=== PATIENT | male | born 1960 | race Caucasian/White ===

== ENCOUNTER → 2023-07-21 13:30 | Outpatient (CLI) | payer BC, SELFPAY ==
--- NOTE | 2023-07-21 14:18 | DI.RAD_ITS ---
Exam(s) XR RIBS RT W PA LAT CHEST EXAM: XR RIBS RT W PA LAT CHEST CLINICAL HISTORY: Rt rib pain s/p fall onto ribs 2 days ago, pleurodynia, R07.81 TECHNIQUE: 2D digital imaging was performed.Six images were obtained. COMPARISON: No exams were available for comparison FINDINGS: MEDIASTINUM: Normal. HEART: Normal. PULMONARY VASCULATURE: Normal. LUNGS: Clear. PLEURAL SPACE: There is a small right apical pneumothorax. The surface of the right lung is 2 cm fro m the apex of the hemithorax. There is a small right pleural effusion. No left pneumothorax or left pleural effusion. BONE:Normal. RIGHT RIBS: There is a minimally displaced fracture of the posterior aspect of the right 8th rib. Th ere also is a nondisplaced fracture involving the posterolateral aspect of the right 5th and 6th ribs (image 5). OTHER FINDINGS:Normal. IMPRESSION: 1. Minimal to nondisplaced fractures involving the posterior aspect of the right 8th rib in the poste rolateral aspects of the right 5th and 6th ribs. 2. Small right apical pneumothorax. There is a small right pleural effusion. DATA REPOSITORY: RADIATION DOSE DELIVERED:
== END ==
PROVIDERS: Visit Provider Physician Assistant
DX: S22.41XA Multiple fractures of ribs, right side, initial encounter for closed fracture (principal); X58.XXXA Exposure to other specified factors, initial encounter
CPT/HCPCS: 71046; 71100

== ENCOUNTER 2023-07-21 16:34 | Emergency (ER) | payer BC, SELFPAY ==
[2023-07-21 16:37] VITALS: BP 147/78; PULSE 85; RESP 18; TEMP 36.9; O2SAT 100
--- NOTE | 2023-07-21 16:48 | W.ED.GENAD ---
Discharge Plan Disposition Patient Disposition: Home Condition: Stable Discharge Details Clinical Impression: Multiple fractures of ribs of right side, Pleural effusion on right, Pneumothorax on right Primary Care Provider: Unknown,Unknown ED Provider: Mark Manrique Home Meds and New Rx's Prescriptions: Continued losartan-hydrochlorothiazide 100-25 mg tablet 1 tab PO DAILY atorvastatin 40 mg tablet 40 mg PO DAILY Patient Comments: TAKE 1 TABLET BY MOUTH DAILY lidocaine 5 % adhesive patch,medicated 1 patch topical DAILY methocarbamol 750 mg tablet 750 mg PO PRN Discharge Instructions Instructions: Oxycodone, Rapid Release (By mouth), Traumatic Pneumothorax (ED), How to Use an Incentive Spirometer (ED), Rib Fracture (ED) Additional Instructions: You were seen in the emergency department for your fall on Friday, you suffered 3 right-sided rib fractures and you have a small pneumothorax at the top of your right lung. He also have some developing fluid in the right lung, there is a risk of developing pneumonia with this injury. We have provided you with an incentive spirometer to use many times per day to help reduce the risk of pneumonia. Please use therapeutic dosing of Tylenol (acetamenophen) & Advil (ibuprofen) in an alternating fashion as follows: Take 1000mg of Tylenol every 6 hours without missing doses- that is 4 times per day. [place] in between the Tylenol dosings, take 400-600mg of Advil also on a 6 hour schedule, that is also 4 times per day. The daily maximum dosing of Tylenol is 4000mg, and the daily maximum dosing of Advil is 2400mg. This is safe to do for weeks. Please note that some common cold medications & prescription pain medications may contain acetamenophen and you need to read OTC drug labels and factor that in to maximum daily dosings. Use a topical lidocaine patch to the area of pain for 12 hours each day, fill your muscle relaxer prescription. Use the oxycodone for breakthrough pain as needed. Please return to the ED for any severe increase in respiratory distress, developing cough especially with fever, follow-up with Dr. Harp's office for definitive management if you feel completely better you can cancel that appointment. Referrals: [facility] [Provider Group] Discharge Data Discharge Date/Time-TO BE ENTERED AT DEPARTURE: 07/21/23 17:55 HPI General Date/Time Provider Initiated Documentation: 07/21/23 16:47. HPI Narrative: 63 year-old male presents to ED today by POV/ambulating with a chief complaint of fall down basement stairs on Friday- seen at [facility] with XR showing R 5th, 6th, and 8th ribs with pleural effusion and small R apical pneumothorax. Quality described as pain to R ribs, no radiation to fever, developing cough, abdominal pain, hematuria, confusion, nausea/vomiting, LOC, repetitive questioning. Severity is described as moderate. Palliating factors include Tylenol and ibuprofen with some relief. Provoking factors include getting up from sleeping. Patient not anticoagulated. Related Data Home Medications Medication Instructions Recorded Confirmed atorvastatin 40 mg tablet 40 mg PO DAILY 07/21/23 07/21/23 lidocaine 5 % topical patch 1 patch topical DAILY 07/21/23 07/21/23 losartan 100 1 tab PO DAILY 07/21/23 07/21/23 mg-hydrochlorothiazide 25 mg tablet methocarbamol 750 mg tablet 750 mg PO PRN 07/21/23 07/21/23 Allergies Allergy/AdvReac Type Severity Reaction Status Date / Time No Known Allergies Allergy Unverified 07/21/23 16:42 General Stated Complaint: Chest/Rib DARIUS: 3 Review of Systems All systems reviewed & are unremarkable except as noted in HPI and below Exam Narrative Exam Narrative: GENERAL APPEARANCE: Well-nourished, non-toxic, awake and alert, atraumatic, no acute distress. SKIN: Warm, pink, dry, intact, without rashes/lesions/ulcerations. HEAD: Normocephalic, atraumatic, normal hair distribution for gender/age. EYES: Pupils PERRLA, EOMs intact without nystagmus, normal conjunctiva, no exudates on lids/lashes. ENT: Nares patent, no circumoral cyanosis, no facial swelling NECK: Supple, trachea midline, painless cervical ROM. LUNGS/CHEST: Lungs CTA bilaterally- no rhonchi/rales/wheezes, no diminishment or absent lung sounds R apice, non-labored respirations, normal A/P diameter, symmetrical expansion, no chest wall deformity, TTP R posterior ribs, no flail segment or paradoxical motion HEART (CV/PV): Regular rate and rhythm without murmur, no peripheral edema, no JVD. ABDOMEN: Soft, non-distended, no guarding, no tenderness. MSK: Normal ROM, no swelling/deformity to bilateral UEs or LEs, moving all extremities without weakness, no cyanosis, spine midline without tenderness, normal curvature. NEURO: Mental Status AAOx4 - alert to person, place, time, events No facial droop, no forehead involvement. Motor: No focal weakness - strength 5/5 in bilateral UEs and LEs, proximal and distal, symmetric. Sensory: sensation intact to light touch globally. Gait normal: patient ambulated without ataxia into ED room. PSYCH: euthymic, cooperative, pleasant, appropriate speech Course Vital Signs Vital signs: Vital Signs Temperature 36.9 C 07/21/23 16:37 Pulse 85 07/21/23 16:37 Respiratory Rate 18 07/21/23 16:37 Blood Pressure 147/78 H 07/21/23 16:37 Pulse Oximetry 100 07/21/23 16:37 Temperature 36.9 C 07/21/23 16:37 Temperature Source Skin 07/21/23 16:37 Pulse 85 07/21/23 16:37 Respiratory Rate 18 07/21/23 16:37 Blood Pressure 147/78 H 07/21/23 16:37 Blood Pressure Position Sitting 07/21/23 16:37 Pulse Oximetry 100 07/21/23 16:37 Oxygen Delivery Method Room Air 07/21/23 16:37 Oxygen Flow Rate 0 07/21/23 16:37 Pain Level 1 07/21/23 16:37 Comment worse with movement 10/1707/21/23 16:37 Medical Decision Making This dictation utilizes [id number] dictation software and may contain unedited grammatical errors. 63 y/o M presents to ED today with a chief complaint of fall on Friday off a small staircase to a concrete floor with R rib pain- presented to [facility], performed XR there and shows 3 R rib fractures, small apical pneumothorax, and R pleural effusion. Patient has not developed cough or fever, is able to push through his ADLs with only Tylenol and ibuprofen and appears overall in no distress. Patients' medical history: Noncontributory. Family and social history: Recovering opiate addict. Pertinent exam findings / vital signs include tenderness to the right posterior ribs without flail segment or paradoxical motion, no auscultated bowel diminished lung sounds the right apex, benign cardiopulmonary status, afebrile, no cough, benign abdomen. Differential / pathologies of concern include multiple rib fractures, pneumothorax, developing pneumonia. Diagnostic studies of: -Reviewed image at [facility]. Interventions of: -Consulted with Dr. Harp of general surgery, reasonable for outpatient follow-up, patient already has a prescription for muscle relaxer and I am providing him an oxycodone to go pack. ED Course/Assessment/Plan: 63-year-old male suffered a fall landing on his back on a flat concrete floor fracturing 3 ribs and causing a small apical pneumothorax as well as right pleural effusion developing since the injury on Friday. He has not developed fever or cough. Consulted with general surgery due to his overall well appearance it is reasonable that he follows up as an outpatient. I did provide him with an incentive spirometer to reduce risk of pneumonia, counseled on therapeutic dosing of Tylenol and ibuprofen, recommend he continue lidocaine patches and provided to cut back of oxycodone. Strict return criteria for developing respiratory distress, fever cough. Findings not consistent with hypoxia, respiratory distress, flail segment or paradoxical motion, pneumonia. Disposition of Multiple fractures of ribs of right side, pneumothorax on right, pleural effusion on right Patient verbalized understanding of the plan and return to ED criteria and engaged in shared decision making. Medical Records Medical records reviewed: Yes I reviewed the patient's medical records. Imaging Data Radiologic Study: Attestation: I personally reviewed and interpreted this imaging study as follows: Imaging: X-Ray Radiologist's impression: EXAM: XR RIBS RT W PA LAT CHEST CLINICAL HISTORY: Rt rib pain s/p fall onto ribs 2 days ago, pleurodynia, R07.81 TECHNIQUE: 2D digital imaging was performed.Six images were obtained. COMPARISON: No exams were available for comparison FINDINGS: MEDIASTINUM: Normal. HEART: Normal. PULMONARY VASCULATURE: Normal. LUNGS: Clear. PLEURAL SPACE: There is a small right apical pneumothorax. The surface of the right lung is 2 cm from the apex of the hemithorax. There is a small right pleural effusion. No left pneumothorax or left pleural effusion. BONE:Normal. RIGHT RIBS: There is a minimally displaced fracture of the posterior aspect of the right 8th rib. There also is a nondisplaced fracture involving the posterolateral aspect of the right 5th and 6th ribs (image 5). OTHER FINDINGS:Normal. IMPRESSION: 1. Minimal to nondisplaced fractures involving the posterior aspect of the right 8th rib in the posterolateral aspects of the right 5th and 6th ribs. 2. Small right apical pneumothorax. There is a small right pleural effusion. Quality:SDOH Health Related Social Needs: No Data to Display PFSH All Active Problems (Updated 07/21/23 @ 17:43 by ARCADIO Gutierrez) Pneumothorax on right (Acute) Pleural effusion on right (Acute) Multiple fractures of ribs of right side (Acute) Social History Smoking/Tobacco Use Status: Former Tobacco Use Quit Date: 07/08/12 Smoking risk assessment performed?: Yes Alcohol Intake: former Substance use type: does not use Housing: house Do you feel safe at home: Yes Do you feel safe in your relationship?: Yes
--- NOTE | 2023-07-21 17:35 | SCONE_ITS ---
Date of service: 07/21/23 Time of Service: 17:35 Assessment and Plan Assessment and plan (1) Multiple fractures of ribs of right side: Status: Acute Assessment and plan: I was able to review the chest x-ray, and I certainly agree that there is a fracture of the eighth rib. Fractures of ribs numbers 5 and 6 are little bit difficult to see. I suspect there may be a fracture of the 10th rib as well. I agree that there is an apical pneumothorax, and perhaps a trace effusion. Based on his current exam, and the nature of the fractures on the chest x-ray, he should heal up just fine with some time. We talked about the importance of adequate pain control to allow for appropriate pulmonary toileting. I recommend against treatment of the pneumothorax as it is entirely asymptomatic, number now over 48 hours from time of injury. I would continue with a multimodal regimen treatment of this pain including the use of methocarbamol and topical treatments with lidocaine patches. I will have my office reach out to him to schedule follow-up appointment in the next few weeks. If there are any changes in the meantime, and we can certainly accommodate him accordingly. History of Present Illness History of Present Illness Chief Complaint: Right-sided chest pain with rib fractures Narrative: Eduardo is 63 years old. He was doing some construction at home on some steps, and fell off the staircase approximately 5 feet landing on his right side. He had pain in the right flank and back. He did not seek attention immediately. He had increasing pain on Friday, mostly when he was sitting still. When he gets up and moves around he felt better. He called his primary care physician on Friday, but was not able to make an appointment she was referred over to urgent care. He underwent x-ray of the chest there that demonstrated right- sided rib fractures. Fractures were identified on ribs #5 6 and 8. There was also an apical pneumothorax and some pleural effusion. He was referred to the department. In the ER, he seems fairly comfortable. He is sitting upright in the chair. He denies any shortness of breath. He describes the pain as sharp and radiating from the right back to the right flank. Again, it tends to be worse after he is holding still for prolonged period of time and then gets up to move around. He also has a little bit of difficulty initiating and maintaining sleep because of the pain. He denies any crepitus. He denies any cough or any other forms of dyspnea. He says he has been feeling a little bit better since the application of a lidocaine patch. He has no past surgical history. He has no allergies. Past medical history is most significant for some hypertension and hypercholesterol. He denies pulmonary medical history PFSH All Active Problems (Updated 07/21/23 @ 17:43 by ARCADIO Gutierrez) Pneumothorax on right (Acute) Pleural effusion on right (Acute) Multiple fractures of ribs of right side (Acute) Social History Smoking/Tobacco Use Status: Former Tobacco Use Quit Date: 07/08/12 Smoking risk assessment performed?: Yes Alcohol Intake: former Substance use type: does not use Housing: house Do you feel safe at home: Yes Do you feel safe in your relationship?: Yes Exam Const General: cooperative, healthy appearing, comfortable and no acute distress Nutritional Appearance: average body habitus HENNV Head: normal to inspection, normocephalic and atraumatic Chest Chest: normal inspection of the chest, no crepitus and localized rib tenderness with anteroposterior compression Results Last Vital Signs Temp 98.5 F 07/21/23 16:37 Pulse 85 07/21/23 16:37 Resp 18 07/21/23 16:37 BP 147/78 H 07/21/23 16:37 Pulse Ox 100 07/21/23 16:37 Imaging Chest x-ray: report reviewed and image reviewed
[2023-07-21 17:52] VITALS: BP 130/82; PULSE 80; RESP 12; O2SAT 98
== END 2023-07-21 17:55 | disposition home or self-care (01) ==
LOC: ER 17:57
PROVIDERS: Emergency Provider Physician Assistant
DX: S22.41XA Multiple fractures of ribs, right side, initial encounter for closed fracture (principal); J90 Pleural effusion, not elsewhere classified; J93.83 Other pneumothorax; Z87.891 Personal history of nicotine dependence; W10.8XXA Fall (on) (from) other stairs and steps, initial encounter; Y93.01 Activity, walking, marching and hiking; Y92.018 Other place in single-family (private) house as the place of occurrence of the external cause
CPT/HCPCS: 99283

== ENCOUNTER 2024-05-07 08:16 | Outpatient (REF) | payer BC, SELFPAY ==
[2024-05-07 15:27] LABS: Anion Gap 2.7 mmol/L (3-11); BUN 20 mg/dL (7-18); CO2 33.3 mmol/L (21.0-32.0); Calcium 9.3 mg/dL (8.5-10.1); Calculated LDL 57 mg/dL (<100); Chloride 105 mmol/L (98-107); Cholesterol 122 mg/dL (<200); Estimated GFR 84.05 (mL/min/1.73m2); Glucose 100 mg/dL (74-106); HDL Cholesterol 40 mg/dL (>or=40); Potassium 3.5 mmol/L (3.5-5.1); Sodium 141 mmol/L (136-145); Triglyceride 127 mg/dL (<150)
== END 2024-05-07 08:17 | disposition home or self-care (01) ==
LOC: NCHCN 08:16
PROVIDERS: PCP Internal Medicine; Visit Provider Internal Medicine
DX: I10 Essential (primary) hypertension (principal); E78.2 Mixed hyperlipidemia
CPT/HCPCS: 80048; 80061

== ENCOUNTER 2024-08-09 06:53 | Day surgery (SDC) | payer BC, SELFPAY ==
--- NOTE | 2024-08-07 15:57 | W.PM.DSUDISC ---
Date of service: 08/09/24 Discharge Plan Disposition Patient Disposition: Home Condition: Good Discharge Details Reason For Visit: screening colonoscopy Attending Provider: Narendra Harp Primary Care Provider: Heavenly Hunt Home Meds and New Rx's Prescriptions: Continued losartan-hydrochlorothiazide 100-25 mg tablet 1 tab PO DAILY atorvastatin 40 mg tablet 40 mg PO DAILY Patient Comments: TAKE 1 TABLET BY MOUTH DAILY Discontinued polyethylene glycol 3350 17 gram/dose powder 238 g PO ONCE Qty: 238 0RF Rx Instructions: take per colonoscopy instructions bisacodyl [Dulcolax (bisacodyl)] 5 mg tablet,delayed release (DR/EC) 5 mg PO ONCE Qty: 4 0RF Rx Instructions: take per colonoscopy instructions Discharge Instructions Instructions: Colon polyps, Diverticulosis Additional Instructions: Eduardo, was good to see you today, and I hope you feel well after the procedure. Things went very smoothly. Your prep was excellent, we could see everything fine. I did find, and removed 3 polyps today. These were all small in size, and none of them have any particularly worrisome features to the naked eye. These will all be sent to the pathologist for their review. Those results take about a week or 2 to get back, but once my office has had information we will be in touch with recommendations for future colonoscopies. Incidentally, he also have some diverticulosis. These are little weak spots in the muscular layer of the colon wall. They cause the inside lining, or mucosa, to pocket her pouch outwards a little bit. The pockets are called diverticula, the condition of having them is known as diverticulosis, and if patients experience significant symptoms from them, we refer to that as diverticulitis. I will attach some basic information here about colon rectal polyps as well as diverticulosis. If you need anything, or have any questions at all, please do not hesitate to ask. 1. If tolerated, consume a soft, low fiber diet for 1-2 days. 2[address] Do not drive, drink alcohol, operate machinery, make critical decisions, or do activities that require coordination or balance for 24 hours. 3. Because air was put into your colon during the procedure, expelling air from your rectum (passing gas or farting) is normal. 4. You may not have a bowel movement for 1-3 days because of the colonoscopy prep. This is normal. 5. Go directly to the emergency room if you notice any of the following: Develop chills (warm to touch), or if you have a thermometer and your temperature is above 101 Difficulty breathing or difficultly swallowing Persistent vomiting Severe abdominal pain, other than gas cramps Severe chest pain Black, tarry stools Any bleeding ? exceeding one tablespoon 6. Call your physician if the site where your intravenous was started becomes red, swollen, painful, and warm to touch. 7. Your physician has reviewed your pre-procedure medications. Please continue to take those medications as previously ordered. You will be given specific information/education regarding any changes to your medications before leaving. Activity:: Activity as Tolerated Diet:: As Tolerated Discharge Orders Discharge Orders: Discharge Order (Routine); Ordered 08/07/24 Ordered By: Narendra Harp DS: Diagnosis Discharge Diagnosis (1) Encounter for screening colonoscopy: Status: Acute Asessment and Plan: Follow-up on polypectomy results
--- NOTE | 2024-08-07 15:58 | COLE_ITS ---
Date of service: 08/09/24 Time of Service: 09:01 Colonoscopy Report Date of procedure: 08/09/24 Pre-op diagnosis general: screening colonoscopy Post-op diagnosis procedure note: other (Diverticulosis, colon polyps) Procedure: colonoscopy with polypectomy Surgeon: Narendra Harp Anesthesia Type: General:No Airway Estimated blood loss (mL): 5 Pathology: other (0.25 cm pedunculated polyp at 90 cm, 0.5 cm flat polyp at 85 cm, 0.25 cm flat polyp at 25 cm) Complications: None Disposition: same day Indications: Eduardo is a 64 year old man who needs a screening colonoscopy Prep: Miralax/Dulcolax Procedure Start Time: 08:31 Procedure End Time: 08:49 Retraction Time: 11 Findings: Sigmoid diverticulosis; 0.25 cm pedunculated polyp at 90 cm, 0.5 cm flat polyp at 85 cm, 0.25 cm flat polyp at 25 cm Procedure Description: After the induction of anesthesia, and with the patient in left lateral decubitus position, I began by performing an external anorectal exam.? Perineum and skin were normal, as was the anal verge.? There was no evidence of external hemorrhoids.? Next, I performed a digital rectal exam.? I did not appreciate any abnormal findings.? Next, I advanced a colonoscope into the rectal vault.? I performed retroflexion.? This appeared normal.? Using insufflation, I then advanced the colonoscope beyond the rectal folds and into the sigmoid colon before advancing towards the cecum.? There is sigmoid diverticulosis.? The scope was noted to be in the cecum by identification of the ileocecal valve and appendiceal orifice.? I then began withdrawing the colonoscope using repeated irrigation as necessary for full evaluation of the colonic mucosa. Around 90 cm from the anal verge was a 0.25 cm polyp. This was mostly pedunculated. This was removed with cold forceps without issues. There was minimal bleeding. An other slightly flattened polyp was found at 85 cm. This was also about 0.25 cm. This was removed with cold forceps in a similar fashion to the first without any problems. I continued withdrawing the colonoscope. Again seen is some sigmoid diverticulosis. Around 25 cm from the anal verge was 1 last polyp. This was a 0.25 cm and flat. Cold forceps were used to remove this. Once the scope was withdrawn to the level of the rectum, great care was taken to examine portions of the rectal folds.? Finally, the scope was withdrawn and the patient was brought to the same-day surgery recovery unit as the anesthetic wore off. ?The findings and instructions were shared with the patient prior to discharge. [place] Bowel Prep [place] Bowel Prep Right Colon: 3 Left Colon: 3 Transverse Colon: 3 Total Score: 9
[2024-08-09 07:26] VITALS: BP 117/87; PULSE 83; RESP 16; TEMP 36.7; O2SAT 95
[2024-08-09] MEDS: Lactated Ringers 1,000 ML 80 ML IV (07:41)
--- NOTE | 2024-08-09 08:13 | W.ANESPRE ---
General Info Date of Service Date Performed: 08/09/24 Height: 5 ft 8 in Weight: 93.9 kg Body Mass Index (BMI): 31.4 Surgical Procedure: Operation Date: 08/09/24 08:20 Proposed Procedure Side Surgeon p Brien Harp MD Meds Allergies and Home Medications Allergies Allergy/AdvReac Type Severity Reaction Status Date / Time lisinopril AdvReac Intermediate cough Verified 08/09/24 07:23 Home Medication ?Medication ?Instructions ?Recorded atorvastatin 40 mg tablet 40 mg PO DAILY 07/21/23 losartan 100 1 tab PO DAILY 07/21/23 mg-hydrochlorothiazide 25 mg tablet Current Visit Medications: Current Medications Generic Name Dose Route Start Last Admin Trade Name Freq PRN Reason Stop Dose Admin Ringer's Solution 1,000 mls @ 80 mls/hr 08/09/24 06:00 08/09/24 07:41 IV 08/09/24 23:59 80 mls/hr INFUSION BUDDY Administration IV Miscellaneous Supplies 1 each 08/09/24 06:00 Iv Access IV 08/09/24 23:59 DIRECTED BUDDY Ondansetron HCl 4 mg 08/07/24 15:59 Ondansetron 4 Mg/2 Ml Vial IVP 09/06/24 15:58 Q4H PRN PRN Nausea / Vomiting Sodium Chloride 0 ml 08/09/24 06:00 Normal Saline Flush 10 Ml Syr IV 08/09/24 23:59 PRN PRN Sodium Chloride 0 ml 08/09/24 06:00 Normal Saline 10 Ml Vial IJ 08/09/24 23:59 DIRECTED PRN Sterile Water 0 ml 08/09/24 06:00 Water,Injection,Sterile 10 Ml Vial IJ 08/09/24 23:59 DIRECTED PRN PFSH Active Problems Active Problems: Problem Status Onset Code Encounter for screening colonoscopy Acute Z12.11 Essential hypertension Acute I10 Multiple fractures of ribs of right side Acute S22.41XA Medical History Medical History MIC (obstructive sleep apnea) Cholesteatoma Impingement syndrome of left shoulder Mixed hyperlipidemia Actinic keratosis Pain, joint, shoulder, left Ex-smoker Tobacco Smoking/Tobacco Use Status: Former Tobacco Use Passive smoking exposure: No Alcohol Alcohol Intake: former Substance Use Substance use: Never Substance use type: does not use Vital Signs and Lab Results Vital Signs Most Recent Vital Signs in EMR: Most Recent Vital Signs Temp Pulse Resp BP Pulse Ox 36.7 C 83 16 117/87 95 08/09/24 07:26 08/09/24 07:26 08/09/24 07:26 08/09/24 07:26 08/09/24 07:26 Lab Results Blood Type / Crossmatch: No Data to Display Complete Blood Count: No Data to Display Complete Metabolic Panel: No Data to Display Liver Function Panel: No Data to Display Coagulation Panel: No Data to Display Cardiac Panel: No Data to Display Arterial Blood Gas: No Data to Display Venous Blood Gas: No Data to Display Pancreas Panel: No Data to Display Thyroid Panel: No Data to Display Infectious Disease: No Data to Display Blood Cultures: No Data to Display Toxicology Panel: No Data to Display Anesthesia Assessment and Plan Anesthesia History Personal History: No History of Anesthesia Complications Family History: No Family History of Anesthesia Complications Exercise Tolerance Exercise Tolerance: Metabolic Equivalents>4 Pertinent Negatives Pertinent Negatives: No Major Cardiovascular Symptoms or Complaints and No Major Pulmonary Symptoms or Complaints Cardiac & Pulmonary Exam Cardiac Exam: Normal S1/S2 Heart Sounds Pulmonary Exam: Clear Bilateral Breath Sounds Implantable Cardiac Device Does patient have a Pacemaker or an ICD?: No Airway Exam Known Difficult Airway: No Mallampati Class: 3 Mouth Opening: Normal (> 3cm) Thyromental Distance: Greater than 3 cm Neck Range of Motion: Full ROM Neck Circumference: Normal Teeth Condition: Normal Dentition and Removable Dentures/Plates Upper ASA Classification ASA Score: ASA 2 Emergency Case?: No NPO Status NPO Status: NPO Clears >2 hours, Solids >8 hours Anesthesia Plan Resuscitation Status: Full Code Anesthesia Technique: General Anesthesia Airway Planned: Natural Airway Monitors Used: Standard Monitors
[2024-08-09 08:15] VITALS: BMI 31.4
--- NOTE | 2024-08-09 08:40 | BOWEL_PTH ---
PATIENT: Eduardo Alvarado LOC: [facility] U#:[id number] AGE/SX: 64/M ROOM: RE08/09/[address]: Narendra Harp MD : [id number] BED: DIS: 08/09/2024 SPEC #: [id number] RECD: 08/09/24 12:51 STATUS: ANJUM REQ #: [id number] JESSICA: 08/09/24 08:[address]: Narendra Harp DEPT: Surgical Specimen RECD BY: Tess Sherwood ENTERED: 08/09/24 12:53 SP TYPE: Bowel OTHR DR: Heavenly Hunt Tissues: 1 - BIOPSY BOWEL 2 - BIOPSY BOWEL 3 - BIOPSY BOWEL Procedures: GROSS AND MICRO LEVEL 4 Comments: [id number]
[2024-08-09 08:52] VITALS: BP 107/76; PULSE 76; RESP 16; TEMP 36.6; O2SAT 97
[2024-08-09 09:15] VITALS: BP 116/88; PULSE 74; RESP 18; TEMP 36.6; O2SAT 94
--- NOTE | 2024-08-09 09:38 | W.ANESPOSTOP ---
Postoperative Evaluation Date, Time and Location Date Performed: 08/09/24 Time Performed: 08:55 Patient Location: Day Surgery Unit Vital Signs Most Recent Imported Vital Signs: Most Recent Vital Signs Temp Pulse Resp BP Pulse Ox 36.6 C 74 18 116/88 94 08/09/24 09:15 08/09/24 09:15 08/09/24 09:15 08/09/24 09:15 08/09/24 09:15 Pain Score Most Recent Pain Score: Most Recent Pain Score Pain Level 0 08/09/24 09:15 Assessment Mental Status: Awake (Alert & Oriented to Patient Baseline) Airway and Respiratory Function: Patent airway with normal (patient baseline) respiratory exam Cardiovascular Function: Hemodynamically Stable Hydration Status: Adequately Hydrated Nausea & Vomiting: No Nausea or Vomiting Pain: Pt. Denies Any Pain Peripheral Nerve Block: Patient did not receive a nerve block
--- NOTE | 2024-08-09 10:03 | W.ANESPOSTOP ---
Postoperative Evaluation Date, Time and Location Date Performed: 08/09/24 Time Performed: 08:57 Patient Location: Day Surgery Unit Vital Signs Most Recent Imported Vital Signs: Most Recent Vital Signs Temp Pulse Resp BP Pulse Ox 36.6 C 74 18 116/88 94 08/09/24 09:15 08/09/24 09:15 08/09/24 09:15 08/09/24 09:15 08/09/24 09:15 Most Recent Vital Signs Temp Pulse Resp BP Pulse Ox 36.6 C 74 18 116/88 94 08/09/24 09:15 08/09/24 09:15 08/09/24 09:15 08/09/24 09:15 08/09/24 09:15 Pain Score Most Recent Pain Score: Most Recent Pain Score Pain Level 0 08/09/24 09:15 Assessment Mental Status: Awake (Alert & Oriented to Patient Baseline) Airway and Respiratory Function: Patent airway with normal (patient baseline) respiratory exam Cardiovascular Function: Hemodynamically Stable Hydration Status: Adequately Hydrated Nausea & Vomiting: No Nausea or Vomiting Pain: Pt. Denies Any Pain Peripheral Nerve Block: Patient did not receive a nerve block
== END 2024-08-09 09:45 | disposition home or self-care (01) ==
PROVIDERS: PCP Internal Medicine; Visit Provider Surgery
PROC: 0DJD8ZZ Inspection of Lower Intestinal Tract, Via Natural or Artificial Opening Endoscopic (ICD-10-PCS; CPT 45378; principal; 2024-08-09 08:15)
DX: Z12.11 Encounter for screening for malignant neoplasm of colon (principal); D12.3 Benign neoplasm of transverse colon; I10 Essential (primary) hypertension; K57.30 Diverticulosis of large intestine without perforation or abscess without bleeding
CPT/HCPCS: 45380; 88305; J2003; J2704